=== PATIENT | male | born 1990 | race Caucasian/White ===

== ENCOUNTER 2025-06-21 16:21 | Emergency (ER) | payer SELFPAY ==
[2025-06-21] MEDS ORDERED: Ketorolac Tromethamine 30 MG (1 mL) VIAL ONE (16:54)
[2025-06-21] MEDS ORDERED: Famotidine/PF 20 mg/2ml Vial ONE (16:55)
[2025-06-21 17:12] LABS: #Basophils 0.1 thou/uL (0.0-0.2); #Eosinophils 0.1 thou/uL (0.0-0.7); #Lymphocytes 2.8 thou/uL (1.20-3.40); #Monocytes 0.5 thou/uL (0.11-0.59); #Neutrophils 3.5 thou/uL (1.40-6.50); %Basophils 1.3 % (0.0-1.0); %Eosinophils 1.7 % (0.0-10.0); %Lymphocytes 39.9 % (21.0-51.0); %Monocytes 7.1 % (0.0-10.0); %Neutrophils 50.0 % (42.0-75.0); Hematocrit 40.7 % (42.0-52.0); Hemoglobin 15.1 g/dL (14.0-18.0); Mean Corpuscular Hemoglobin 31.2 pg (27.0-31.0); Mean Corpuscular Volume 83.9 fl (78.0-98.0); Platelet Count 228 10x3/uL (130-400); Red Blood Cell (RBC) Count 4.85 mill/uL (4.70-6.10); White Blood Cell (WBC) Count 7.1 10x3/uL (4.8-10.8)
[2025-06-21 17:27] LABS: ALT (SGPT) 18 U/L (Less than 45); AST (SGOT) 23 U/L (11-34); Albumin 4.3 g/dL (3.1-4.5); Alkaline Phosphatase 67 U/L (40-110); Anion Gap 16 mmol/L (10-20); BUN (Urea Nitrogen) 14 mg/dL (8.9-20.6); Bilirubin, Total 0.5 mg/dL (0.3-1.2); Calc. Creatinine Clearance 0 mL/min (70-130); Calcium 8.8 mg/dL (7.8-10.44); Carbon Dioxide 22 mmol/L (22-29); Chloride 107 mmol/L (98-107); Globulin 2.9 g/dL (2.4-3.5); Glucose 117 mg/dL (70-105); Potassium 3.5 mmol/L (3.5-5.1); Sodium 141 mmol/L (136-145)
== END 2025-06-21 18:02 | disposition home or self-care (01) ==
LOC: NAV ERS 16:21
DX: S40.861A Insect bite (nonvenomous) of right upper arm, initial encounter (principal); W57.XXXA Bitten or stung by nonvenomous insect and other nonvenomous arthropods, initial encounter
CPT/HCPCS: 80053; 85025; 96374; 96375; J1308; J1885; J2919; J7030